=== PATIENT | male | born 1950 | race Caucasian/White ===

== ENCOUNTER 2023-02-19 03:14 | Emergency (ER) | payer MEDICARE ==
[~2023-02-19] VITALS: Ht 157.5 cm; Wt 80.3 kg
[2023-02-19 03:26] VITALS: BP 121/73; PULSE 98; RESP 16; TEMP 97.4; O2SAT 96
== END 2023-02-19 03:57 ==
LOC: MED 03:14
DX: Z02.89 Encounter for other administrative examinations (principal); V49.88XA Car occupant (driver) (passenger) injured in other specified transport accidents, initial encounter; Y93.89 Activity, other specified; Y92.89 Other specified places as the place of occurrence of the external cause; Y99.8 Other external cause status
CPT/HCPCS: 99283